=== PATIENT | female | born 1960 | race Caucasian/White ===

== ENCOUNTER 2018-12-15 19:02 | Emergency (ER) | payer BC ==
[~2018-12-15] VITALS: Ht 154.9 cm; Wt 71.7 kg
[2018-12-15 19:12] VITALS: BP_SYST 126
[2018-12-15] MEDS ORDERED: KETOROLAC TROMETHAMINE 60 MG/2 ML VIAL IM ONE (19:30)
[2018-12-15 19:51] VITALS: BP_SYST 126
== END 2018-12-15 19:51 | disposition home or self-care (01) ==
LOC: SED 19:02
DX: G56.01 Carpal tunnel syndrome, right upper limb (principal); R03.0 Elevated blood-pressure reading, without diagnosis of hypertension; Z98.51 Tubal ligation status
CPT/HCPCS: 29125; 96372; 99283; J1885

== ENCOUNTER 2019-01-05 12:28 | Emergency (ER) | payer BC ==
[~2019-01-05] VITALS: Ht 154.9 cm; Wt 71.7 kg
[2019-01-05 12:40] VITALS: BP_SYST 101
[2019-01-05] MEDS ORDERED: KETOROLAC TROMETHAMINE 60 MG/2 ML VIAL IM ONE (13:00)
[2019-01-05 13:38] VITALS: BP_SYST 101
== END 2019-01-05 13:38 | disposition home or self-care (01) ==
LOC: SED 12:28
DX: J32.9 Chronic sinusitis, unspecified (principal)
CPT/HCPCS: 96372; 99283; J1885